=== PATIENT | male | born 1980 | race Caucasian/White ===

== ENCOUNTER 2021-02-02 21:06 | Inpatient (IN) | payer OTHER ==
[2021-02-02] MEDS ORDERED: ASPIRIN 81 MG PO STA (21:23)
[2021-02-02] MEDS ORDERED: NITROGLYCERIN OINT 1 INCH/GM PACKET TOPICAL STA (21:23)
--- NOTE | 2021-02-02 21:30 | ED ---
General Adult HPI - General Chief complaint: Chest Pain Stated complaint: Chest Pain Time Seen by Provider: 02/02/21 21:15 Source: patient, EMS, RN notes reviewed Mode of arrival: EMS Limitations: no limitations - History of Present Illness Initial comments: Patient is a pleasant 40-year-old male presenting to the emergency Department with complaints of chest discomfort. Onset of symptoms was prior to arrival. Patient was at rest. Patient had sudden onset of severe chest discomfort described as pressure. Patient had some associated tingling of his arms. Patient did have associated dyspnea and felt sweaty. No nausea. No history of similar symptoms previously. Discomfort was 8 or 9/10. Patient took 3 nitro glycerin by EMS and discomfort has significantly improved to 3/10. No leg pain or leg swelling. - Related Data Allergies Allergy/AdvReac Type Severity Reaction Status Date / Time No Known Allergies Allergy Verified 02/02/21 21:15 Review of Systems ROS Statement: Those systems with pertinent positive or pertinent negative responses have been documented in the HPI. ROS Other: All systems not noted in ROS Statement are negative. Constitutional: Denies: fever Eyes: Denies: eye pain ENT: Denies: ear pain Respiratory: Reports: as per HPI. 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 Absent: chest wall tenderness Cardiovascular Exam: Present: regular rate, normal rhythm Expanded Peripheral pulses: 2+: Radial (R), Radial (L), Dorsalis Pedis (R), Dorsalis Pedis (L) GI/Abdominal exam: Present: soft. Absent: tenderness Extremities exam: Present: normal inspection. Absent: pedal edema, calf tenderness Neurological exam: Present: alert Psychiatric exam: Present: normal affect, normal mood Skin exam: Present: normal color Course Vital Signs 02/02/21 21:09 Temperature 97.7 F Pulse Rate 69 Respiratory 18 Rate Blood Pressure 162/91 O2 Sat by Pulse 97 Oximetry EKG Findings - EKG Comments: EKG Findings:: Sinus rhythm with a rate of 63. AL 136. QRS 98. QT 428. QTC 437. Normal axis. Normal QRS. No acute ST change. PVC present. Medical Decision Making - Medical Decision Making Patient reevaluated and resting comfortably in bed. Patient states near symptom-free at this time. Patient updated on results and plan. Dr. Michaud was notified of admission, covering for this [facility]. - Lab Data Result diagrams: 02/02/21 21:26 02/02/21 21:26 Lab Results 02/02/21 02/02/21 02/02/21 Range/Units 21:26 21:26 21:26 WBC 11.1 H (3.8-10.6) k/uL RBC 3.71 L (4.30-5.90) m/uL Hgb 12.9 L (13.0-17.5) gm/dL Hct 38.3 L (39.0-53.0) % MCV 103.4 H (80.0-100.0) fL MCH 34.8 (25.0-35.0) pg MCHC 33.7 (31.0-37.0) g/dL RDW 12.8 (11.5-15.5) % Plt Count 305 (150-450) k/uL MPV 7.9 Neutrophils % 70 % Lymphocytes % 20 % Monocytes % 5 % Eosinophils % 3 % Basophils % 0 % Neutrophils # 7.7 (1.3-7.7) k/uL Lymphocytes # 2.2 (1.0-4.8) k/uL Monocytes # 0.5 (0-1.0) k/uL Eosinophils # 0.3 (0-0.7) k/uL Basophils # 0.0 (0-0.2) k/uL Macrocytosis Slight PT 9.8 (9.0-12.0) sec INR 0.9 (<1.2) APTT 23.2 (22.0-30.0) sec D-Dimer 0.42 (<0.60) mg/L FEU Sodium 138 (137-145) mmol/L Potassium 4.0 (3.5-5.1) mmol/L Chloride 108 H (98-107) mmol/L Carbon Dioxide 24 (22-30) mmol/L Anion Gap 6 mmol/L BUN 12 (9-20) mg/dL Creatinine 0.73 (0.66-1.25) mg/dL Est GFR (CKD-EPI)AfAm >90 (>60 ml/min/1.73 sqM) Est GFR (CKD-EPI)NonAf >90 (>60 ml/min/1.73 sqM) Glucose 152 H (74-99) mg/dL Calcium 8.6 (8.4-10.2) mg/dL Magnesium 2.0 (1.6-2.3) mg/dL Total Bilirubin 0.5 (0.2-1.3) mg/dL AST 36 (17-59) U/L ALT 20 (4-49) U/L Alkaline Phosphatase 74 (38-126) U/L Troponin I (0.000-0.034) ng/mL Total Protein 6.9 (6.3-8.2) g/dL Albumin 3.8 (3.5-5.0) g/dL 02/02/21 Range/Units 21:26 WBC (3.8-10.6) k/uL RBC (4.30-5.90) m/uL Hgb (13.0-17.5) gm/dL Hct (39.0-53.0) % MCV (80.0-100.0) fL MCH (25.0-35.0) pg MCHC (31.0-37.0) g/dL RDW (11.5-15.5) % Plt Count (150-450) k/uL MPV Neutrophils % % Lymphocytes % % Monocytes % % Eosinophils % % Basophils % % Neutrophils # (1.3-7.7) k/uL Lymphocytes # (1.0-4.8) k/uL Monocytes # (0-1.0) k/uL Eosinophils # (0-0.7) k/uL Basophils # (0-0.2) k/uL Macrocytosis PT (9.0-12.0) sec INR (<1.2) APTT (22.0-30.0) sec D-Dimer (<0.60) mg/L FEU Sodium (137-145) mmol/L Potassium (3.5-5.1) mmol/L Chloride (98-107) mmol/L Carbon Dioxide (22-30) mmol/L Anion Gap mmol/L BUN (9-20) mg/dL Creatinine (0.66-1.25) mg/dL Est GFR (CKD-EPI)AfAm (>60 ml/min/1.73 sqM) Est GFR (CKD-EPI)NonAf (>60 ml/min/1.73 sqM) Glucose (74-99) mg/dL Calcium (8.4-10.2) mg/dL Magnesium (1.6-2.3) mg/dL Total Bilirubin (0.2-1.3) mg/dL AST (17-59) U/L ALT (4-49) U/L Alkaline Phosphatase (38-126) U/L Troponin I <0.012 (0.000-0.034) ng/mL Total Protein (6.3-8.2) g/dL Albumin (3.5-5.0) g/dL - Radiology Data Radiology results: image reviewed (Chest x-ray shows no acute process) Disposition Clinical Impression: Chest pain Disposition: ADMITTED IP TO THIS HOSP Is patient prescribed a controlled substance at d/c from ED?: No Referrals: [facility],Clinic [Primary Care Provider] - 1-2 days Decision Time: 22:48
[2021-02-02 21:48] LABS: Basophils % (A) 0 %; Eosinophils # (A) 0.3 k/uL (0-0.7); Eosinophils % (A) 3 %; HCT 38.3 % (39.0-53.0); HGB 12.9 gm/dL (13.0-17.5); Lymphocytes # (A) 2.2 k/uL (1.0-4.8); Lymphocytes % (A) 20 %; MCH 34.8 pg (25.0-35.0); MCHC 33.7 g/dL (31.0-37.0); MCV 103.4 fL (80.0-100.0); Macrocytosis Slight; Mean Platelet Volume 7.9; Monocytes # (A) 0.5 k/uL (0-1.0); Monocytes % (A) 5 %; Neutrophils # (A) 7.7 k/uL (1.3-7.7); Neutrophils % (A) 70 %; Platelet Count 305 k/uL (150-450); RBC 3.71 m/uL (4.30-5.90); RDW 12.8 % (11.5-15.5); WBC 11.1 k/uL (3.8-10.6)
--- NOTE | 2021-02-02 22:03 | XR ---
EXAMINATION TYPE: XR chest 1V portable DATE OF EXAM: 02/02/2021 COMPARISON: NONE HISTORY: Chest pain TECHNIQUE: Single view FINDINGS: Heart and mediastinum are normal. Lungs are clear of infiltrate. There is no pleural effusi on. There is subsegmental atelectasis left lung base. There are chest leads. IMPRESSION: Interval subsegmental atelectasis. Normal heart.
[2021-02-02 22:23] LABS: ALT 20 U/L (4-49); African American GFR (CKD) >90 (>60 ml/min/1.73 sqM); Albumin 3.8 g/dL (3.5-5.0); Anion Gap 6 mmol/L; Blood Urea Nitrogen 12 mg/dL (9-20); Calcium 8.6 mg/dL (8.4-10.2); Carbon Dioxide 24 mmol/L (22-30); Chloride 108 mmol/L (98-107); Glucose 152 mg/dL (74-99); Non-African American GFR(CKD) >90 (>60 ml/min/1.73 sqM); Sodium 138 mmol/L (137-145); Total Bilirubin 0.5 mg/dL (0.2-1.3); Total Protein 6.9 g/dL (6.3-8.2)
[2021-02-02 22:24] LABS: AST 36 U/L (17-59); Alkaline Phosphatase 74 U/L (38-126)
[2021-02-02 22:37] LABS: INR 0.9 (<1.2); Partial Thromboplastin Time 23.2 sec (22.0-30.0); Prothrombin Time 9.8 sec (9.0-12.0)
[2021-02-02] MEDS ORDERED: NITROGLYCERIN SL TABS 0.4 MG TAB SUBLINGUAL PRN (22:53)
[2021-02-03] MEDS ORDERED: NITROGLYCERIN OINT 1 INCH/GM PACKET TOPICAL SCH
[2021-02-03] MEDS ORDERED: HEPARIN SODIUM 1,000 UN/ML (10ML VL) IV ONE (04:35)
[2021-02-03] MEDS ORDERED: HEPARIN SOD,PORK IN 0.45% NACL 25,000 UNIT in 0.45% NACL 1 250ML.BAG IV SCH (04:45)
[2021-02-03] MEDS ORDERED: ATORVASTATIN 80 MG TAB PO STA (05:20)
[2021-02-03] MEDS: NITROGLYCERIN OINT 1 INCH/GM PACKET TOPICAL SCH ×3 (05:58→17:41)
[2021-02-03] MEDS ORDERED: ASPIRIN 325 MG TAB PO SCH (09:00)
[2021-02-03] MEDS: METOPROLOL TARTRATE 12.5 MG TAB PO SCH ×2 (10:21→20:24)
[2021-02-03] MEDS: ASPIRIN 81 MG PO SCH (10:21)
[2021-02-03] MEDS ORDERED: IV FLUID CONTINUATION 1,000 ML IV ONE (10:50)
[2021-02-03] MEDS ORDERED: LIDOCAINE 1% INJ 10MG/ML (20 ML MDV) ONE (11:02)
[2021-02-03] MEDS ORDERED: VERAPAMIL 2.5 MG/ML 2 ML AMP ONE (11:02)
[2021-02-03] MEDS ORDERED: HEPARIN SODIUM 1,000 UN/ML (10ML VL) ONE (11:06)
[2021-02-03 11:16] LABS: Chol/HDL Ratio 5.44 Ratio; LDL Cholesterol,Calculated 120.2 mg/dL (0.0-131.0); VLDL Calculation 21.8 mg/dL (5.00-40.00)
[2021-02-03] MEDS ORDERED: MIDAZOLAM 2 MG/2 ML VIAL IV ONE (11:20)
[2021-02-03] MEDS ORDERED: LIDOCAINE 1% INJ 10MG/ML (20 ML MDV) SQ ONE (11:21)
[2021-02-03] MEDS ORDERED: VERAPAMIL SYRINGE (5 MG/10 ML) INTRAARTER ONE (11:23)
[2021-02-03] MEDS ORDERED: IOPAMIDOL-370 100ML BTL INJ ONE (11:36)
--- NOTE | 2021-02-03 11:49 | CONS ---
CONSULTATION This is a 40-year-old gentleman who came into the hospital with complaints of discomfort in his chest. He felt pressure and tightness in the chest and also had some diaphoresis, and then the symptoms seemed to wane. He felt better but was concerned and came into the hospital. On arrival, his initial troponin was normal, but repeat troponin is elevated. He is comfortable. EKG initially revealed precordial ST-T changes, but now the EKG is normal. He is comfortable resting. He had an episode of chest pressure that was relatively sudden in onset with diaphoresis which has resolved. He received 3 sublingual nitroglycerins by the EMS. He is asymptomatic at the time of my evaluation. PAST MEDICAL HISTORY: Unremarkable for any hypertension, diabetes, myocardial infarction or CVA. The patient does smoke and does not use marijuana regularly and drinks alcohol rarely. No previous surgeries. There is a question of autoimmune hemolytic anemia, but this does not seem to be an issue at this time. EKG revealed a sinus mechanism with mild precordial ST-T changes in V1 that have resolved, and the repeat EKG looks normal. Laboratory data suggest that the troponin went up to 1.4 after being normal initially. Other labs are within normal limits. His hemoglobin is 12.9. Platelet count is normal. PHYSICAL EXAMINATION: On examination, blood pressure is 138/70, pulse rate is 70. HEENT unremarkable. Fundus was not examined by me. Neck is supple. No JVD. I do not hear a carotid bruit. There is no thyromegaly. Heart exam reveals S1, S2 heard normally. No rub, murmur or gallop. Lungs are clear. Abdomen is soft, nontender. Lower extremities reveal normal pulses. No edema. Central nervous system is normal. EKG revealed sinus mechanism, no acute changes. Laboratory data suggest elevated troponin. IMPRESSION: 1. [id number] myocardial infarction. 2. History of smoking. 3. No evidence of any other major risk factors. RECOMMENDATIONS: I am recommending that we continue IV heparin. I will initiate him on a beta isidoro, aspirin 81 mg daily, Lipitor 80 mg daily, and proceed with coronary angiography; based on findings, intervention. He will also be on nitroglycerin paste one-half inch q.6 hours. I discussed my thoughts in detail with the patient. He is agreeable for cardiac cath, understands the rationale, risks, benefits and options. Thank you very much for the consult. MMODL / IJN: [id number] /
[2021-02-03] MEDS ORDERED: ENOXAPARIN 100 MG/ML SYRINGE SQ STA (12:33)
--- NOTE | 2021-02-03 13:01 | CC ---
CARDIAC CATHETERIZATION REPORT DATE OF SERVICE: 02/03/2021 PROCEDURE: Left heart catheterization and coronary angiography. PERFORMED BY: Dr. Car Luna. SEDATION: Moderate conscious sedation time was 70 minutes. Patient was administered Versed. Oxygen saturation, hemodynamics and EKG were monitored closely. CLINICAL INFORMATION: Mr. Hunter Melchor is a 40-year-old gentleman without significant past medical history. 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 He came in because he had significant crushing discomfort in the chest and had no significant EKG changes. Initial troponin was normal. Subsequent EKG revealed mild T-wave inversion in lead V1 and then troponin went up to 3.4. When he had the chest pain first, he required sublingual nitroglycerin for relief. Because of his chest pain and troponin elevation he was advised cardiac cath after due discussion regarding risks, benefits, and options. PROCEDURE NOTE: Under local anesthesia and strict aseptic precautions, a 6-Romanian introducer was placed in the right radial artery. Using a JL3.5 and JR4 catheters, I performed coronary angiography and used the same right catheter to check LV pressures but did not perform an LV-gram. The sheath was taken out and TR band applied as per protocol. Saturation the fingers of the right hand was 96%. CARDIAC CATHETERIZATION FINDINGS: The left ventricular end-diastolic pressure was 10 mmHg without any gradient across aortic valve. RIGHT CORONARY ARTERY: Technically a dominant vessel, has no significant disease. Distally bifurcates into PDA and PLV, both of which supply a sizable amount of myocardium. There is no significant disease involving the dominant RCA. LEFT MAIN CORONARY ARTERY: Short patent vessel, free of significant disease, that bifurcates into LAD and circumflex. LEFT ANTERIOR DESCENDING CORONARY ARTERY: Good caliber vessel extends along the anterior wall, gives off septal branches and a good-sized diagonal branch in the midportion. No significant disease. Supplies a sizable amount of myocardium and runs all the way to the apex and supplies the inferoapical portion of left ventricle. The entire LAD system has no significant disease. LEFT POSTERIOR CIRCUMFLEX CORONARY ARTERY: Nondominant vessel, gives off 2 good-sized obtuse marginal that runs laterally and supply a sizable amount of myocardium. No significant disease. Distal circumflex also has minor irregularities and there is also a circumflex groove branch which is free of significant disease. No significant disease in the nondominant yet good distribution circumflex system. Left ventriculogram was not performed. FINAL IMPRESSION: This patient has a right dominant system, normal filling pressures. No gradient. No significant obstructive CAD. He probably has a myocardial infarction without obstructive coronary artery disease. I will obtain echocardiogram. His D-dimer was also normal. Results were discussed with the patient. There was no family available. We will pursue medical therapy with statins and also will continue heparin for another 24 hours. I explained to the patient that we do not have any obstructive CAD, which I expected under the circumstances, but we will check LV function as well. Prognosis remains guarded. MMODL / IJN: [id number] /
--- NOTE | 2021-02-03 15:19 | P.HPIM ---
History of Present Illness Patient is a 40-year-old male with history of smoking came in with compensative chest pressure-like sensation radiating to the left arm 8/10 in severity along with the diaphoresis. Patient had an EKG which was within normal limits facet of troponin is negative second and third sets of troponins are elevated and the highest troponin was around 3. Patient denied any fever chills nausea vomiting diarrhea dysuria. REVIEW OF SYSTEMS: CONSTITUTIONAL: No fever, no malaise, no fatigue. HEENT: No recent visual problems or hearing problems. Denied any sore throat. CARDIOVASCULAR: No orthopnea, PND, no palpitations, no syncope. PULMONARY: No shortness of breath, no cough, no hemoptysis. GASTROINTESTINAL: No diarrhea, no nausea, no vomiting, no abdominal pain. NEUROLOGICAL: No headaches, no weakness, no numbness. HEMATOLOGICAL: Denies any bleeding or petechiae. GENITOURINARY: Denies any burning micturition, frequency, or urgency. MUSCULOSKELETAL/RHEUMATOLOGICAL: Denies any joint pain, swelling, or any muscle pain. ENDOCRINE: Denies any polyuria or polydipsia. The rest of the 14-point review of systems is negative. PHYSICAL EXAMINATION: GENERAL: The patient is alert and oriented x3, not in any acute distress. Well developed, well nourished. HEENT: Pupils are round and equally reacting to light. EOMI. No scleral icterus. No conjunctival pallor. Normocephalic, atraumatic. No pharyngeal erythema. No th yromegaly. CARDIOVASCULAR: S1 and S2 present. No murmurs, rubs, or gallops. PULMONARY: Chest is clear to auscultation, no wheezing or crackles. ABDOMEN: Soft, nontender, nondistended, normoactive bowel sounds. No palpable organomegaly. MUSCULOSKELETAL: No joint swelling or deformity. EXTREMITIES: No cyanosis, clubbing, or pedal edema. NEUROLOGICAL: Gross neurological examination did not reveal any focal deficits. SKIN: No rashes. 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" History of Any Multi-Drug Resistant Organisms: None Reported Past Surgical History: No Surgical Hx Reported Past Psychological History: No Psychological Hx Reported Smoking Status: Current every day smoker Past Alcohol Use History: None Reported Past Drug Use History: None Reported Medications and Allergies Home Medications Medication Instructions Recorded Confirmed Type No Known Home Medications 02/02/21 02/02/21 History Allergies Allergy/AdvReac Type Severity Reaction Status Date / Time No Known Allergies Allergy Verified 02/02/21 23:00 Physical Exam Vitals: Vital Signs Temp Pulse Pulse Resp BP BP Pulse Ox 02/03/21 14:47 16 02/03/21 14:43 63 142/80 98 02/03/21 13:43 63 147/88 96 02/03/21 13:13 65 127/77 96 02/03/21 12:43 60 131/78 97 02/03/21 12:28 61 130/75 97 02/03/21 12:13 61 16 136/78 96 02/03/21 11:58 98.1 F 16 152/85 96 02/03/21 10:29 73 16 138/85 97 02/03/21 04:56 68 18 148/95 97 02/03/21 02:50 97.7 F 78 18 142/88 96 02/03/21 02:00 62 18 142/86 98 02/03/21 00:00 63 18 140/92 99 02/02/21 22:45 63 16 127/78 100 02/02/21 22:15 65 16 139/83 98 02/02/21 21:45 67 16 140/78 98 02/02/21 21:15 60 16 156/97 98 02/02/21 21:09 97.7 F 69 18 162/91 97 Intake and Output 02/03/21 02/03/21 02/03/21 06:59 14:59 22:59 Intake Total 1010 Balance 1010 Intake: IV 50 Oral 960 Other: Weight 90.718 kg Results CBC & Chem 7: 02/02/21 21:26 02/02/21 21:26 Labs: Abnormal Lab Results - Last 24 Hours (Table) 02/02/21 02/02/21 02/03/21 Range/Units 21:26 21:26 00:15 WBC 11.1 H (3.8-10.6) k/uL RBC 3.71 L (4.30-5.90) m/uL Hgb 12.9 L (13.0-17.5) gm/dL Hct 38.3 L (39.0-53.0) % MCV 103.4 H (80.0-100.0) fL Chloride 108 H (98-107) mmol/L Glucose 152 H (74-99) mg/dL Troponin I 1.440 H* (0.000-0.034) ng/mL HDL Cholesterol (40.00-60.00) mg/dL 02/03/21 02/03/21 Range/Units 03:34 03:34 WBC (3.8-10.6) k/uL RBC (4.30-5.90) m/uL Hgb (13.0-17.5) gm/dL Hct (39.0-53.0) % MCV (80.0-100.0) fL Chloride (98-107) mmol/L Glucose (74-99) mg/dL Troponin I 3.040 H* (0.000-0.034) ng/mL HDL Cholesterol 32.00 L (40.00-60.00) mg/dL Thrombosis Risk Factor Assmnt - Choose All That Apply Each Factor Represents 1 point: Age 41-60 years, Medical pt on bed rest, Obesity (BMI >25) Thrombosis Risk Factor Assessment Total Risk Factor Score: 3 Thrombosis Risk Factor Assessment Level: Moderate Risk
[2021-02-03] MEDS ORDERED: ENOXAPARIN 100 MG/ML SYRINGE SQ ONE (17:00)
[2021-02-03 17:34] VITALS: RESP 16
[2021-02-04] MEDS: NITROGLYCERIN OINT 1 INCH/GM PACKET TOPICAL SCH ×2 (00:10→06:21)
[2021-02-04 07:22] LABS: Basophils % (A) 0 %; Eosinophils # (A) 0.3 k/uL (0-0.7); Eosinophils % (A) 2 %; HCT 39.4 % (39.0-53.0); Lymphocytes # (A) 1.7 k/uL (1.0-4.8); Lymphocytes % (A) 15 %; MCH 34.1 pg (25.0-35.0); MCV 103.5 fL (80.0-100.0); Macrocytosis Slight; Mean Platelet Volume 7.6; Monocytes # (A) 0.6 k/uL (0-1.0); Monocytes % (A) 5 %; Neutrophils # (A) 8.8 k/uL (1.3-7.7); Neutrophils % (A) 75 %; Platelet Count 288 k/uL (150-450); RBC 3.81 m/uL (4.30-5.90); RDW 12.8 % (11.5-15.5); WBC 11.8 k/uL (3.8-10.6)
[2021-02-04] MEDS: ASPIRIN 81 MG PO SCH (07:33)
[2021-02-04] MEDS: METOPROLOL TARTRATE 12.5 MG TAB PO SCH (07:34)
[2021-02-04 07:38] VITALS: BP 155/96; PULSE 78; TEMP 97.9
[2021-02-04 07:54] LABS: African American GFR (CKD) >90 (>60 ml/min/1.73 sqM); Anion Gap 5 mmol/L; Blood Urea Nitrogen 12 mg/dL (9-20); Carbon Dioxide 23 mmol/L (22-30); Chloride 110 mmol/L (98-107); Glucose 92 mg/dL (74-99); Non-African American GFR(CKD) >90 (>60 ml/min/1.73 sqM); Potassium 4.2 mmol/L (3.5-5.1); Sodium 138 mmol/L (137-145)
[2021-02-04] MEDS ORDERED: ATORVASTATIN 40 MG TAB PO SCH (09:00)
--- NOTE | 2021-02-04 10:10 | P.DS ---
Providers Date of admission: 02/03/21 14:37 Attending physician: Kaushik Michaud MD Consults: 02/02/21 22:54 Consult Physician Urgent Consulting Provider: Valarie Luna Consult Reason/Comments: cp Do you want consulting provider notified?: Yes Primary care physician: [facility] Course: Patient is a 40-year-old male with history of smoking came in with compensative chest pressure-like sensation radiating to the left arm 8/10 in severity along with the diaphoresis. Patient had an EKG which was within normal limits facet of troponin is negative second and third sets of troponins are elevated and the highest troponin was around 3. Patient denied any fever chills nausea vomiting diarrhea dysuria. PHYSICAL EXAMINATION: GENERAL: The patient is alert and oriented x3, not in any acute distress. Well developed, well nourished. HEENT: Pupils are round and equally reacting to light. EOMI. No scleral icterus. No conjunctival pallor. Normocephalic, atraumatic. No pharyngeal erythema. No thyromegaly. CARDIOVASCULAR: S1 and S2 present. No murmurs, rubs, or gallops. PULMONARY: Chest is clear to auscultation, no wheezing or crackles. ABDOMEN: Soft, nontender, nondistended, normoactive bowel sounds. No palpable organomegaly. MUSCULOSKELETAL: No joint swelling or deformity. EXTREMITIES: No cyanosis, clubbing, or pedal edema. NEUROLOGICAL: Gross neurological examination did not reveal any focal deficits. SKIN: No rashes. Assessment and plan -Possible acute non-ST elevation myocardial infarction: She is status post cardiac ablation which without any significant coronary artery disease. -Nicotine use: Counseling was provided -Hyperlipidemia Plan - Discharge Summary New Discharge Prescriptions: New Aspirin 81 mg PO DAILY #30 tab Metoprolol Tartrate [Lopressor] 12.5 mg PO BID #60 tab Atorvastatin [Lipitor] 40 mg PO DAILY #30 tab Nitroglycerin Sl Tabs [Nitrostat] 0.4 mg SUBLINGUAL Q5M PRN #30 tab PRN Reason: Chest Pain Discharge Medication List Aspirin 81 mg PO DAILY #30 tab 02/04/21 [Rx] Atorvastatin [Lipitor] 40 mg PO DAILY #30 tab 02/04/21 [Rx] Metoprolol Tartrate [Lopressor] 12.5 mg PO BID #60 tab 02/04/21 [Rx] Nitroglycerin Sl Tabs [Nitrostat] 0.4 mg SUBLINGUAL Q5M PRN #30 tab 02/04/21 [Rx] Follow up Appointment(s)/Referral(s): Valarie Luna MD [STAFF PHYSICIAN] - 1 Week (office closed, please call friday to make follow-up appointment) [facility],Clinic [Primary Care Provider] - 3 Days (please call office friday to make follow-up appointment) Patient Instructions/Handouts: Heart Catheterization (DC) Discharge Disposition: HOME SELF-CARE
--- NOTE | 2021-02-04 11:57 | PN ---
PROGRESS NOTE This gentleman came in with chest pain, had troponin elevation. However, his echo and coronary angiogram did not reveal any significant abnormality. I am recommending that we discontinue nitropaste, place him on subcu heparin, increase activity, discharge him later today and I will see him in the office on Friday. Vitals are stable. No JVD. S1, S2 heard normally. Lungs are clear. Abdomen, lower extremity and central nervous system are grossly within normal limits. Patient probably has a myocardial infarction without obstructive CAD. LV function is also normal by echo but the report somehow did not cross over. This was dictated yesterday. MMODL / IJN: [id number] /
== END 2021-02-04 11:30 | disposition home or self-care (01) | DRG 282 ==
LOC: EC 21:06 → 6NMEDSUR 22:54 → 3SCARD 02-03 02:08 → OBSVTOIN 02-03 14:37
PROVIDERS: ADMIT Internal Medicine; ATTEND Internal Medicine
PROC: B2111ZZ Fluoroscopy of Multiple Coronary Arteries using Low Osmolar Contrast (ICD-10-PCS; 2021-02-03)
PROC: 4A023N7 Measurement of Cardiac Sampling and Pressure, Left Heart, Percutaneous Approach (ICD-10-PCS; principal; 2021-02-03 11:00)
DX: I21.4 Non-ST elevation (NSTEMI) myocardial infarction (principal); F17.210 Nicotine dependence, cigarettes, uncomplicated; E78.5 Hyperlipidemia, unspecified; Z71.6 Tobacco abuse counseling; Z20.822 Contact with and (suspected) exposure to COVID-19
CPT/HCPCS: 36415; 71045; 80048; 80053; 80061; 83735; 84484; 85025; 85379; 85610; 85730; 87635; 93005; 93306; 93458; 96374; 99285

== ENCOUNTER 2024-04-12 10:49 | Emergency (ER) | payer OTHER ==
[2024-04-12] MEDS: FLUORESCEIN STRIPS 1 MG STRIP LEFT EYE ONE (12:03)
[2024-04-12] MEDS: PROPARACAINE 0.5% OPHTH DROPS 15 ML BTL LEFT EYE STA (12:03)
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
[2024-04-12 12:29] LABS: Basophils % (A) 0 %; Eosinophils # (A) 0.3 k/uL (0-0.7); Eosinophils % (A) 3 %; HCT 44.4 % (39.0-53.0); Lymphocytes # (A) 1.7 k/uL (1.0-4.8); Lymphocytes % (A) 17 %; MCH 32.9 pg (25.0-35.0); MCHC 33.7 g/dL (31.0-37.0); MCV 97.7 fL (80.0-100.0); Monocytes # (A) 0.5 k/uL (0-1.0); Monocytes % (A) 5 %; Neutrophils # (A) 7.2 k/uL (1.3-7.7); Neutrophils % (A) 72 %; Platelet Count 257 k/uL (150-450); RBC 4.54 m/uL (4.30-5.90)
[2024-04-12 12:43] LABS: ALT 20 U/L (4-49); AST 20 U/L (17-59); African American GFR (CKD) >90 (>60 ml/min/1.73 sqM); Alkaline Phosphatase 72 U/L (38-126); Anion Gap 3 mmol/L; Blood Urea Nitrogen 11 mg/dL (9-20); Calcium 8.8 mg/dL (8.4-10.2); Carbon Dioxide 26 mmol/L (22-30); Chloride 110 mmol/L (98-107); Glucose 92 mg/dL (74-99); Non-African American GFR(CKD) >90 (>60 ml/min/1.73 sqM); Potassium 4.3 mmol/L (3.5-5.1); Sodium 139 mmol/L (137-145); Total Bilirubin 0.4 mg/dL (0.2-1.3); Total Protein 6.8 g/dL (6.3-8.2)
[2024-04-12 12:56] LABS: INR 0.9 (<1.2); Partial Thromboplastin Time 26.5 sec (22.0-30.0); Prothrombin Time 10.3 sec (10.0-12.5)
[2024-04-12 13:06] VITALS: RESP 18; TEMP 98.1
--- NOTE | 2024-04-12 13:11 | CT ---
EXAMINATION TYPE: CT brain wo con DATE OF EXAM: 04/12/2024 COMPARISON: None CLINICAL INDICATION: Male, 43 years old with history of left eye vision loss; PHH, Loss of vision Lt eye CT DLP: 1085 mGycm Automated exposure control for dose reduction was used. FINDINGS: Limited by artifact. Grossly no acute hemorrhage, mass effect or midline shift. Orbits symmetric. Hosiery Looper niocervical junction maintained. Calvarium intact. Ventricles basal cisterns and sulci overlying the convexities are consistent with the patient's age. IMPRESSION: NO ACUTE HEMORRHAGE OR MASS EFFECT. [facility], , 04/12/2024 1:09 PM
--- NOTE | 2024-04-12 13:37 | CT ---
EXAMINATION TYPE: CT angio head neck DATE OF EXAM: 04/12/2024 COMPARISON: None CLINICAL INDICATION: Male, 43 years old with history of left vision loss; PHH, Loss of vision Lt eye TECHNIQUE: CTA scan of the head and neck is performed with IV Contrast, patient injected with 65 mL of Isovue 370, axial images are obtained, coronal and sagittal reformatted images are reviewed. 3D re constructed images are created on an independent workstation and reviewed. CT DLP: 687.6 mGycm Automated exposure control for dose reduction was used. NASCET criteria was used in interpretation of this exam? FINDINGS: Right Carotid System: The common carotid artery and external carotid artery are patent. The carotid bifurcation demonstrate s no evidence of hemodynamically significant stenosis. The remaining portions of the internal carotid artery demonstrate normal size without significant narrowing. Left Carotid System: The common carotid artery and external carotid artery are patent. The carotid bifurcation demonstrate s no evidence of hemodynamically significant stenosis. The remaining portions of the internal carotid artery demonstrate normal size without significant narrowing. Vertebral arteries are patent without evidence hemodynamically significant stenosis. There is a three-vessel aortic arch. The origins of the great vessels are patent. No evidence of hemo dynamically significant stenosis. Hypoplastic A1 segment of the left anterior cerebral artery. No large vessel occlusion. No sizable an eurysm. Left vertebral artery is dominant. Right vertebral artery diminutive assistance size near the cranioc ervical junction. Basilar artery is patent. Posterior cerebral arteries are believed to be patent pro ximally the limited with remaining course. Recommend MRI/MRA. Case discussed with Dr. Gabriel at 1: 35 PM 04/22/2024. Other: Mild emphysematous change of the lungs. Calcified granuloma right upper lobe. Thyroid limited by artifact. No pathologic lymphadenopathy. Subcentimeter lymph nodes are seen in short axis scattere d throughout the soft tissue compartments of the neck. Hypertrophic and degenerative changes of the s pine. IMPRESSION: 1. No sizable aneurysm. 2. No central intracranial large vessel occlusion of the anterior or middle cerebral arteries. The right vertebral artery is markedly diminutive along its distal margin just prior to its confluence wi th the basilar artery which should be correlated clinically. No prior exams available for comparison. Additionally, the posterior cerebral arteries are poorly visualized and MRI\MRA suggested. 3. No evidence of significant stenosis at the carotid bifurcations. [facility], , 04/12/2024 1:35 PM
--- NOTE | 2024-04-12 17:40 | MR ---
EXAMINATION TYPE: MR brain wo/w con DATE OF EXAM: 04/12/2024 5:09 PM COMPARISON: 04/12/2024. CLINICAL INDICATION: Male, 43 years old with history of Blind in the left eye; PHH, Blind in Left eye , TECHNIQUE: Multi planar, multi sequence imaging was performed through the brain including: T1, T2, In version recovery, susceptibility weighted imaging and gradient echo imaging and Diffusion weighted im aging. The patient was then given intravenous contrast and multi planar, T1 fat-saturation images wer e obtained. IV Contrast: 9 mL Gadavist FINDINGS: The cooper-white junctions, ventricular system, basal cisterns appear unremarkable. Diffusion-weighted imaging shows no evidence of restricted diffusion to suggest acute/subacute infarct. Intracranial ar terial flow voids are maintained. Midline structures show no abnormality. The susceptibility weighted images do not reveal any evidence for micro-hemorrhage. The bone marrow signal is within normal limits. Paranasal sinuses and mastoid air cells: T2 signal in the left mastoid air cell. Visualized orbits: The globes are symmetrical. The orbits are symmetrical. No intraconal extraconal m ass. The left optic nerve demonstrates postcontrast enhancement which is asymmetric compared to the r ight side series 3 image 13/14 in the intra-orbital segment of the optic nerves. Additionally there i s increased FLAIR signal within the optic nerves on the left. IMPRESSION: 1. Left optic nerve enhancement correlate for optic neuritis 2. No evidence of intracranial mass or acute/subacute infarct. 3. Left Mastoid air cell effusion. [facility], , 04/12/2024 5:38 PM
--- NOTE | 2024-04-12 17:50 | MR ---
EXAMINATION TYPE: MR angio head wo/neck wo/w con DATE OF EXAM: 04/12/2024 5:08 PM COMPARISON: 04/12/2024. CLINICAL INDICATION: Male, 43 years old with history of Blind in left eye; PHH, Blind in Left eye, Technical: MRA brain: 2D and 3-D [id number] Axial with MIP and 3-D reconstruction. Performed on a separate w orkstation. MRA neck: Multiplanar, multi-sequence imaging as well as [id number] and phase was performed extra cranial vasculature of the neck. 3-D reformatted images and maximum intensity projection reformatted images were submitted for evaluation, these are performed on a separate workstation. IV Contrast: 9 cc Gadavist Findings: Vertebral arteries: The vertebral arteries are patent. Vertebral arteries are: Left dominant. Basilar artery: The basilar artery is intact. The basilar artery bifurcation is normal. Internal Carotid arteries: The cervical, petrous, cavernous and supraclinoid segments are normal. GLORIA: Patent with no evidence of aneurysm. ACOM: Present without evidence of aneurysm. MCA: Patent with no evidence of aneurysm. MENTAL HEALTH CONSULTANT: Patent with no evidence of aneurysm. PCOM: Hypoplastic bilaterally. RIGHT CAROTID SYSTEM: The common carotid artery is patent. The carotid bifurcations demonstrates no e vidence for hemodynamically significant stenosis. The internal carotid artery is patent. LEFT CAROTID SYSTEM: The common carotid artery is patent. The carotid bifurcations demonstrates no e vidence for hemodynamically significant stenosis. The internal carotid artery is patent. The origins of the great vessels and vertebral arteries appear unremarkable. The right vertebral art nico is dominant. IMPRESSION: 1. No evidence of intracranial aneurysm or significant stenosis. 2. No evidence of significant stenosis at the carotid bifurcations. The carotid and vertebral arteri es are patent. 3. No evidence aneurysm. [facility], , 04/12/2024 5:47 PM
[2024-04-12 19:31] VITALS: BP 150/92; PULSE 68
== END 2024-04-12 19:30 | disposition home or self-care (01) ==
LOC: EC 10:49
DX: H54.62 Unqualified visual loss, left eye, normal vision right eye (principal); F17.200 Nicotine dependence, unspecified, uncomplicated
CPT/HCPCS: 36415; 80053; 83605; 85025; 85610; 85730; 70496; 70450; 70498; 70544; 70549; 70553; 99284; A9585; Q9967